=== PATIENT | female | born 1985 | race Asian ===

== ENCOUNTER 2021-05-30 20:53 | Emergency (ER) | payer MEDICAID, SELFPAY ==
--- NOTE | ~2021-05-30 | CT_ITS ---
EXAMINATION: CT ABDOMEN AND PELVIS WITH CONTRAST CLINICAL INFORMATION: Right upper quadrant pain and tenderness. Rule out biliary disease. COMPARISON: None TECHNIQUE: Multidetector volumetric images were obtained from the superior aspect of the liver through the pubic symphysis following administration 85 mL of Omnipaque 350 intravenous contrast. Sagittal and coronal reformatted images were obtained on the technologist's workstation. Oral contrast: No This CT examination was performed using dose optimization techniques as appropriate, variously including the following: *Automated exposure control *Adjustment of mA and/or kV according to patient size (this includes techniques or standardized protocols for targeted exams where dose is matched to indication/reason for exam; i.e. extremities or head) *Use of iterative reconstruction technique DLP: 385 mGy-cm FINDINGS: LUNG BASES: The visualized lung bases are unremarkable. LIVER, GALLBLADDER, AND BILIARY TREE: The liver is normal in size, shape, and attenuation. No focal hepatic lesion or biliary ductal dilatation is present. The gallbladder is unremarkable with no evidence of radiopaque gallstones, gallbladder wall thickening, or obvious pericholecystic inflammatory changes. PANCREAS: Unremarkable. SPLEEN: Unremarkable. ADRENAL GLANDS: Unremarkable. KIDNEYS AND URETERS: The kidneys are normal in size, shape, and attenuation. No hydronephrosis, hydroureter, or calculi seen. No perinephric stranding. BLADDER: Unremarkable. GASTROINTESTINAL TRACT: The small and large bowel are unremarkable. The appendix is unremarkable. ABDOMINAL WALL: No significant hernia is appreciated. LYMPH NODES: Normal. VASCULAR: Unremarkable. PELVIC VISCERA: Uterus is unremarkable. There is a left adnexal 2.2 cm dermoid. OSSEOUS STRUCTURES: No acute or suspicious osseous abnormality. CT/CT abdomen pelvis w con IMPRESSION: No acute finding of the abdomen or pelvis. Normal appearance of the gallbladder on CT. No stones are seen. Left adnexal dermoid measures 2.2 cm. Fleischner guidelines were followed.
[2021-05-30 21:04] VITALS: BP 132/56; PULSE 83; RESP 20; TEMP 36.7; O2SAT 100; BMI 23.3
--- NOTE | 2021-05-30 21:10 | ECG_ITS ---
Test Reason : DIZZINESS Blood Pressure : / mmHG Vent. Rate : 066 BPM Atrial Rate : 066 BPM P-R Int : 140 ms QRS Dur : 068 ms QT Int : 410 ms P-R-T Axes : 066 072 064 degrees QTc Int : 429 ms Normal sinus rhythm Normal ECG No previous ECGs available Referred By: Generic ED Physician Electronically Signed By:DONALD CORTES MD
[2021-05-30 22:12] LABS: Basophils Percent Auto 0.6 % (0-2); Eosinophils Absolute Auto 0.2 X10*3/uL (0.0-0.4); Eosinophils Percent Auto 4.1 % (0-4); Hematocrit 40.9 % (37.0-47.0); Hemoglobin 13.8 g/dl (12.0-16.0); Imm Gran Abs Auto 0.01 X10*3/uL (0.00-0.03); Imm Gran Pct Auto 0.2 % (0.0-0.4); Lymphocytes Absolute Auto 3.3 X10*3/uL (1.2-4.9); Lymphocytes Percent Auto 63.4 % (20-40); MANUAL DIFF FLAG SCAN; Mean Corpuscular HGB Conc 33.7 g/dl (31.0-35.0); Mean Corpuscular Hemoglobin 30.9 pg (27.0-33.0); Mean Corpuscular Volume 91.5 fL (80.0-98.0); Monocytes Absolute Auto 0.3 X10*3/uL (0.1-1.2); Neutrophils Absolute Auto 1.3 x10*3/uL (2.0-8.3); Neutrophils Percent Auto 25.7 % (45-73); Platelet Count 350 X10*3/uL (160-400); Red Blood Count 4.47 X10*6/uL (4.20-5.50); Red Cell Distribution Width 12.9 % (11.0-16.0); SCAN SMEAR FLAG 1; White Blood Count 5.1 X10*3/uL (4.8-10.8)
[2021-05-30 22:30] LABS: SLIDE REVIEW VERIFIED
[2021-05-30 22:31] LABS: Alanine Aminotransferase 16 U/L (0-31); Albumin Level 4.5 g/dL (3.5-5.0); Alkaline Phosphatase 64 U/L (39-117); Anion Gap 13 (12-20); Aspartate Amino Transferase 23 U/L (5-31); Bilirubin Total 0.3 mg/dL (0.0-1.0); Blood Urea Nitrogen 15 mg/dL (9-16); Calcium 10.3 mg/dL (8.4-10.2); Carbon Dioxide 20 mmol/L (22-29); Chloride 110 mmol/L (96-108); Creatinine Clr Calc Pharmacy 96.2; Estimated Glomerular Filt Rate > 60; Glucose Random 99 mg/dL (60-115); Lipase 18 U/L (8-78); Potassium 3.9 mmol/L (3.3-5.1); Sodium 139 mmol/L (135-145); Total Protein 7.5 g/dL (6.5-8.0)
[2021-05-30 22:37] LABS: Troponin-I High Sensitivity < 3.5 ng/L (<3.5-17.0)
[2021-05-30 22:53] LABS: Appearance Urine CLEAR; Color Urine STRAW; Glucose Urine UA NEG (NEG); Leukocyte Esterase Urine NEG (NEG); Nitrite Urine NEG (NEG); Specific Gravity - Urine <= 1.005 (1.005-1.025); Urine Blood NEG (NEG); Urine Ketones NEG (NEG); Urine Protein NEG (NEG-TRACE)
[2021-05-30 22:55] LABS: UPreg QC Valid YES; Urine Pregnancy NEGATIVE (NEGATIVE)
[2021-05-31] VITALS: BP 128/74; PULSE 84; RESP 16; O2SAT 100
--- NOTE | 2021-05-31 01:09 | PC.NURSE ---
PATIENT IS LAYING ON STRETCHER NO DISTRESS BREATHING IS EVEN AND UNLABORED SKIN IS P,D,W. ON IPAD NO FACIAL GRIMACE OR GUARDING. AWAITING TO BE SEEN BY PROVIDER.
--- NOTE | 2021-05-31 03:31 | PC.NURSE ---
TALKING WITH PATIENT, APOLOGIZING FOR WAIT TIMES TO SEE A PROVIDER. PATIENT REPORTS FEELING THIRSTY GIVEN A FEW ICE CHIPS FOR HER DRY MOUTH. PATIENT AND FAMILY MEMBER VERBALIZED UNDERSTANDING OF WHAT WAS HAPPENING WITH THE PLAN OF CARE. AWATING TO BE SEEN BY PROVIDER. PATIENT AND FAMILY MEMBER WATCHING MOVIES ON IPAD, NO DISTRESS NOTED. TOLERATED ICE CHIPS WELL.
[2021-05-31 03:43] VITALS: BP 110/67; PULSE 65; RESP 16; TEMP 36.5; O2SAT 98
[2021-05-31] MEDS: Ketorolac Tromethamine 30 MG/ML VIAL 15 MG IVPUSH (04:48)
[2021-05-31] MEDS: ondansetron HCL 4 MG/2 ML VIAL IVPUSH ×2 (04:48→06:20)
[2021-05-31] MEDS: 0.9 % Sodium Chloride 1,000 ML 999 ML IV (04:48)
--- NOTE | 2021-05-31 05:05 | ED_ITS ---
HPI - Abdominal Pain General Chief Complaint: Abdominal Pain Stated Complaint: radiating abd pain going to the back Time Seen by Provider: 05/31/21 04:13 Source: patient and other (Significant other, Matias) Mode of arrival: ambulatory Limitations: no limitations History of Present Illness HPI narrative: 36-year-old female who presents emergency department for evaluation of abdominal pain, nausea, abdominal distension, chest pain and shortness of breath. Patient states that she has been experiencing abdominal pain and nausea for approximately 2 months. She states that initially the pain was in her epigastric area and was a sharp pain which seemed to be worse after eating food. She states she has had constant nausea with no vomiting. She states that over the past several weeks the pain has changed and is now located diffusely throughout her abdomen she feels like her abdomen is distended. She states that over the past 24 hours she has had a diffuse, sharp pain which is 9/10 at its worst, the pain does radiate to her back. She feels very bloated. She has had nausea with no vomiting. She states that she has had no bowel movement in 2 days and her last bowel movement was black. She denied fever, chills, frequency, urgency, dysuria or vaginal discharge. She states her last menstrual period was 05/21/2021. She states that her pain is currently 8/10. The patient lives in [facility] and came to the [facility] to visit family for the holidays. Past surgical history the patient had an ovarian cyst surgery 20 years ago and a right-sided ovarian cyst surgery 2 years prior. Related Data Previous Rx's Medication Instructions Recorded doxycycline hyclate 100 mg tablet 100 mg PO Q12H 10 Days #20 tab 05/31/21 metronidazole 500 mg tablet 500 mg PO Q12H 10 Days #20 tab 05/31/21 omeprazole 20 mg capsule,delayed 20 mg PO DAILY 30 Days #30 cap 05/31/21 release Allergies Allergy/AdvReac Type Severity Reaction Status Date / Time latex Allergy Rash Verified 05/30/21 21:09 Review of Systems Review of Systems Yes all other systems are reviewed and are negative Physical Exam Vital Signs: Vital Signs: Last Vital Signs Temp 98.0 F 05/31/21 06:40 Pulse 78 05/31/21 06:40 Resp 16 05/31/21 06:40 BP 120/68 05/31/21 06:40 Pulse Ox 96 05/31/21 06:40 BMI result Body Mass Index 23.3 Const: General: cooperative and no acute distress Orientation/consciousness: oriented to person and oriented to place Limitations: no limitations HENMT: Head: Yes normal to inspection, Yes normocephalic and Yes atraumatic Ears: external ears normal General nose exam: Normal external nose present Face and sinus: Yes normal facial exam Mouth: Normal oral and palatal mucosa present Throat: Yes posterior oropharynx normal Eyes: General: appearance normal, both eyes and all related structures Pupils: Equal, round and reactive pupils present Neck: Neck: Yes normal visual inspection, Yes no lymphadenopathy, Yes trachea midline and Yes supple Chest: Chest palpation & inspection: normal inspection of the chest and normal palpation of entire chest wall Resp: Effort & Inspection: normal respiratory effort and able to speak in complete sentences Auscultation: clear to auscultation bilaterally Cardio: Rate: regular rate Rhythm: regular rhythm Heart sounds: S1 normal heart sound present, S2 normal heart sound present and no murmurs GI: Inspection: Yes distended (Mild distension) Palpation (GI): Soft to palpation, Tenderness to palpation present (GI) ([id number] diffuse abdominal tenderness) and no guarding Auscultation: normal bowel sounds : General: Yes CVA tenderness ( bilateral, moderate) External Female Exam: normal external appearance Speculum Exam - Vagina: normal appearance of the vagina and abnormal vaginal discharge ( thick, white) Speculum Exam - Cervix: normal appearance of the cervix, Cervical os closed, Abnormal cervical discharge present ( thick grayish white discharge) and Cervical tenderness present ( moderate to severe) Bimanual exam- vagina & uterus: Cervical tenderness present ( moderate to severe) and cervical motion tenderness ( moderate to severe) Bimanual Exam- Adnexa, other: tender ( moderate bilateral) Back/Spine/Pelvis: Back: CVA tenderness ( bilateral, moderate) Skin: General skin exam: no rashes or lesions noted Neuro: General: oriented to person and oriented to place Cranial nerves: Yes CN's II-XII intact bilaterally and Yes Equal, round and reactive pupils present Cognition (Neuro): normal cognition Motor exam (neuro): 5/5 motor strength present throughout Extrem: General: Yes normal to inspection Psych: Appearance: grossly normal Speech and movement: Normal speech and movement present Affect: normal affect Attitude: cooperative Thought process: Normal thought process present Thought content: Normal thought content present Course Course Course Narrative: 36-year-old female who presents emergency department for evaluation of abdominal pain x2 months, with worsening pain over the past week with abdominal distension. She has also had persistent nausea over 2 months and her pain seems to be worse after eating. Vital signs were unremarkable. Abdominal exam revealed diffuse abdominal tenderness with abdominal distension. The differential includes but is not limited to peptic ulcer disease, gastritis, stomach ulcer, pancreatitis, pelvic inflammatory disease, kidney disease, ovarian disease. Patient was ordered to get normal saline IV x1 L, Toradol 30 mg IV and Zofran 4 mg IV. I ordered a CT scan of the abdomen pelvis with IV contrast. 0511: Laboratory evaluation revealed a normal CBC and unremarkable comprehensive metabolic panel. Troponin was below detectable limits. Urine test was negative. Urinalysis was negative. Lipase was normal at 18. 0654: Patient's CT scan of the abdomen pelvis did not reveal a clear etiology for the patient's pain. Patient does have a 2.2 cm left dermoid cyst which she was aware of. Patient's pelvic examination is concerning for pelvic inflammatory disease. The patient may also have gastritis and esophagitis given her other symptoms. The patient will be treated for PID with ceftriaxone 500 mg with lidocaine IM, doxycycline 100 mg twice a day for 10 days and metronidazole 500 mg twice a day for 10 days. The patient was advised to take Tylenol for pain, for pain not relieved by Tylenol she was prescribed morphine 15 mg every 4-6 hours. The patient will also be started on omeprazole 20 mg once a day. She was given verbal and printed instructions and discharged home. MDM - Abdominal Pain Lab Data Result diagrams: 05/30/21 22:03 05/30/21 22:03 Labs: Lab Results 05/30/21 05/30/21 05/30/21 Range/Units 22:03 22:03 22:04 WBC 5.1 (4.8-10.8) X10*3/uL RBC 4.47 (4.20-5.50) X10*6/uL Hgb 13.8 (12.0-16.0) g/dl Hct 40.9 (37.0-47.0) % MCV 91.5 (80.0-98.0) fL MCH 30.9 (27.0-33.0) pg MCHC 33.7 (31.0-35.0) g/dl RDW 12.9 (11.0-16.0) % Plt Count 350 (160-400) X10*3/uL MPV 10.0 (9.4-12.3) fL Immature Gran % (Auto) 0.2 (0.0-0.4) % Neut % (Auto) 25.7 L (45-73) % Lymph % (Auto) 63.4 H (20-40) % [place] % (Auto) 6.0 (2-11) % Eos % (Auto) 4.1 H (0-4) % Baso % (Auto) 0.6 (0-2) % Lymph # (Auto) 3.3 (1.2-4.9) X10*3/uL [place] # (Auto) 0.3 (0.1-1.2) X10*3/uL Eos # (Auto) 0.2 (0.0-0.4) X10*3/uL Baso # (Auto) 0.0 (0.0-0.2) X10*3/uL Abs Immat Gran (auto) 0.01 (0.00-0.03) X10*3/uL Absolute Neuts (auto) 1.3 L (2.0-8.3) x10*3/uL Absolute Nucleated RBC 0.000 (0.0-0.012) X10*3/uL Nucleated RBC % (auto) 0.0 (0.0-0.2) /100WBC Smear Tech's Comments VERIFIED Sodium 139 (135-145) mmol/L Potassium 3.9 (3.3-5.1) mmol/L Chloride 110 H (96-108) mmol/L Carbon Dioxide 20 L (22-29) mmol/L Anion Gap 13 (12-20) BUN 15 (9-16) mg/dL Creatinine 0.72 (0.5-1.4) mg/dL Estim Creat Clear Calc 96.2 Estimated GFR > 60 Random Glucose 99 (60-115) mg/dL Calcium 10.3 H (8.4-10.2) mg/dL Total Bilirubin 0.3 (0.0-1.0) mg/dL AST 23 (5-31) U/L ALT 16 (0-31) U/L Alkaline Phosphatase 64 (39-117) U/L Troponin I High Sens < 3.5 (<3.5-17.0) ng/L Total Protein 7.5 (6.5-8.0) g/dL Albumin 4.5 (3.5-5.0) g/dL Lipase 18 (8-78) U/L Urine Color Urine Appearance Urine pH (5.0-8.0) Ur Specific [place] (1.005-1.025) Urine Protein (NEG-TRACE) MG/DL Urine Glucose (UA) (NEG) MG/DL Urine Ketones (NEG) MG/DL Urine Blood (NEG) Urine Nitrite (NEG) Ur Leukocyte Esterase (NEG) Urine Test (NEGATIVE) 05/30/21 05/30/21 Range/Units 22:38 22:38 WBC (4.8-10.8) X10*3/uL RBC (4.20-5.50) X10*6/uL Hgb (12.0-16.0) g/dl Hct (37.0-47.0) % MCV (80.0-98.0) fL MCH (27.0-33.0) pg MCHC (31.0-35.0) g/dl RDW (11.0-16.0) % Plt Count (160-400) X10*3/uL MPV (9.4-12.3) fL Immature Gran % (Auto) (0.0-0.4) % Neut % (Auto) (45-73) % Lymph % (Auto) (20-40) % [place] % (Auto) (2-11) % Eos % (Auto) (0-4) % Baso % (Auto) (0-2) % Lymph # (Auto) (1.2-4.9) X10*3/uL [place] # (Auto) (0.1-1.2) X10*3/uL Eos # (Auto) (0.0-0.4) X10*3/uL Baso # (Auto) (0.0-0.2) X10*3/uL Abs Immat Gran (auto) (0.00-0.03) X10*3/uL Absolute Neuts (auto) (2.0-8.3) x10*3/uL Absolute Nucleated RBC (0.0-0.012) X10*3/uL Nucleated RBC % (auto) (0.0-0.2) /100WBC Smear Tech's Comments Sodium (135-145) mmol/L Potassium (3.3-5.1) mmol/L Chloride (96-108) mmol/L Carbon Dioxide (22-29) mmol/L Anion Gap (12-20) BUN (9-16) mg/dL Creatinine (0.5-1.4) mg/dL Estim Creat Clear Calc Estimated GFR Random Glucose (60-115) mg/dL Calcium (8.4-10.2) mg/dL Total Bilirubin (0.0-1.0) mg/dL AST (5-31) U/L ALT (0-31) U/L Alkaline Phosphatase (39-117) U/L Troponin I High Sens (<3.5-17.0) ng/L Total Protein (6.5-8.0) g/dL Albumin (3.5-5.0) g/dL Lipase (8-78) U/L Urine Color STRAW Urine Appearance CLEAR Urine pH 7.0 (5.0-8.0) Ur Specific [place] <= 1.005 (1.005-1.025) Urine Protein NEG (NEG-TRACE) MG/DL Urine Glucose (UA) NEG (NEG) MG/DL Urine Ketones NEG (NEG) MG/DL Urine Blood NEG (NEG) Urine Nitrite NEG (NEG) Ur Leukocyte Esterase NEG (NEG) Urine Test NEGATIVE (NEGATIVE) Discharge Plan Discharge Clinical Impression: Gastritis, Esophagitis, Acute pelvic inflammatory disease (PID) Patient Disposition: Home, Self-Care Instructions: Gastritis (ED), Diet for Stomach Ulcers and Gastritis (ED), Esophagitis (ED) Additional Instructions: Your blood work was unremarkable. The CT scan of your abdomen pelvis with IV contrast did not reveal a clear cause for your pain. You do have a 2.2 cm left dermoid cyst but this is not causing your pain. Gastritis/esophagitis I believe that your upper abdominal pain is caused by gastritis and/or esophagitis. Take omeprazole 20 mg once a day for 1 month, this medication will shut off your acid production and help the inflammation in your stomach and esophagus heal. Pelvic inflammatory disease Based on your physical examination and the findings on pelvic examination you have pelvic inflammatory disease (PID) which is causing her lower abdominal pain and your back pain. Approximately 30% of the time, pelvic inflammatory disease is caused by sexually transmitted diseases such as Trichomonas, gonorrhea or chlamydia. Approximately 70% of the time, pelvic inflammatory disease is caused by abnormal bacteria (anaerobic bacteria) in your vagina that can cause an infection You received ceftriaxone 500 mg intramuscularly here in the emergency department Take doxycycline 100 mg, 1 pill twice a day for 10 days. Take metronidazole 500 mg, 1 pill twice a day for 10 days. These 3 antibiotics treat sexually transmitted diseases such as gonorrhea, chlamydia and Trichomonas as well as anaerobic bacteria that can cause pelvic inflammatory disease. Take Tylenol (acetaminophen) 500 mg pills, 2 pills every 4-6 hours as needed for pain. For pain not relieved by Tylenol take morphine 1 5 mg pills, 1 pill every 4-6 hours as needed for pain. Do not drive or work while taking this medication since they can cause sleepiness. Morphine is a narcotic medication that can be addicting. If you are concerned about addiction you can ask the pharmacist for less pills or do not get this prescription filled. Follow-up with our gynecology for [facility] in 7-10 days. If your osteologist cannot see you, you [facility] also [facility] The doctor that follows up will need to review the following results with you: Bacterial vaginosis testing Gonorrhea and chlamydia (cervical swab and urine testing) Trichomonas testing Please return to the emergency department if your symptoms are worse or if you develop any symptoms that are concerning to you. You can also check these results on the patient portal. Prescriptions: New doxycycline hyclate 100 mg tablet 100 mg PO Q12H 10 Days Qty: 20 RF: 0 metronidazole 500 mg tablet 500 mg PO Q12H 10 Days Qty: 20 RF: 0 omeprazole 20 mg capsule,delayed release(DR/EC) 20 mg PO DAILY 30 Days Qty: 30 RF: 0 Referrals: Eze Hensley MD [Physician] - 10 days [facility] Past Medical History [facility] Narrative: Past medical history: Ovarian cyst. Past surgical history: Ovarian cyst removed 20 years prior and a right ovarian cyst removed 2 years prior, the patient states that these were dermoid cyst. Social history: She lives in [facility] and is in this area for the holidays. She is a former smoker and stop smoking 6 months prior. She drinks alcoholic beverages 4 times a week. She uses marijuana 5 times a week. Social History Social History Advance Directives: No
[2021-05-31] MEDS: iohexoL 350 MG/ML 100 ML INFUS..BTL IV (05:24)
[2021-05-31 05:45] VITALS: BP 112/61; PULSE 84; RESP 16
[2021-05-31 06:00] VITALS: BP 113/56; PULSE 84; RESP 16; O2SAT 98
[2021-05-31 06:20] VITALS: RESP 16
[2021-05-31] MEDS: Morphine Sulfate 4 MG/ML CARTRIDGE IVPUSH (06:20)
[2021-05-31 06:40] VITALS: BP 120/68; PULSE 78; RESP 16; TEMP 36.7; O2SAT 96
[2021-05-31] MEDS: cefTRIAXone sodium 500 MG, Lidocaine HCl 1 % MPF 1 ML IM (07:29)
[2021-05-31 09:14] LABS: BV Int Neg Control Negative (Negative); BV Int Pos Control Positive (Positive)
[2021-05-31 09:36] LABS: CT PCR NOT DETECTED (Not Detect.); NG PCR NOT DETECTED (Not Detect.)
== END 2021-05-31 07:34 | disposition home or self-care (01) ==
PROVIDERS: Emergency Provider Emergency Medicine Emergency Medical Services
DX: K29.70 Gastritis, unspecified, without bleeding (principal); K20.90 Esophagitis, unspecified without bleeding; N73.9 Female pelvic inflammatory disease, unspecified; B37.9 Candidiasis, unspecified; R10.9 Unspecified abdominal pain; R11.0 Nausea
CPT/HCPCS: 36415; 74177; 80053; 81003; 81025; 83690; 84484; 85025; 87480; 87491; 87510; 87591; 87660; 93005; 96361; 96372; 96374; 96375; 96376; 99284; J0696; J1885; J2270; J2405; Q9967